=== PATIENT | female | born 1950 | race Caucasian/White ===

== ENCOUNTER 2018-11-09 09:16 | Outpatient (REF) | payer MEDICARE, SELFPAY ==
[2018-11-09 19:08] LABS: HCT 39.8 % (36.0-46.0); HGB 11.9 g/dL (12.0-15.5); Mean Corp. HGB Concentration 29.9 g/dL (32.0-36.0); Mean Corpuscular Hemoglobin 27.1 pg (27.0-33.0); Mean Corpuscular Volume 90.7 fL (80-95); Mean Platelet Volume 10.5 fL (8.0-11.0); Platelet Count 309 x1000/uL (130-400); RBC 4.39 m/cumm (4.00-5.20); RBC Distribution Width 14.5 % (11.7-14.6); White Blood Cell Count 8.23 k/cumm (4.4-10.8)
[2018-11-09 19:26] LABS: ALT 29 U/L (14-59); AST 23 U/L (15-37); Albumin 3.8 g/dL (3.4-5.0); Alkaline Phosphatase 91 U/L (46-116); Anion Gap 8.3 mmol/L (3-11); BUN 18 mg/dL (7-18); Bilirubin, Total 0.3 mg/dL (0.2-1.0); CO2 32.7 mmol/L (21.0-32.0); CREATININE 0.91 mg/dL (0.55-1.02); Calcium 9.3 mg/dL (8.5-10.1); Calculated LDL 70 mg/dL; Chloride 99 mmol/L (98-107); Cholesterol 134 mg/dL (50-200); Glucose 151 mg/dL (70-100); HDL Cholesterol 35 mg/dL (40-60); Potassium 4.5 mmol/L (3.5-5.1); Sodium 140 mmol/L (136-145); Triglyceride 147 mg/dL (30-150)
[2018-11-09 20:14] LABS: COMMENT (LAB VIEW ONLY) < 13.00 mg/dL; PROTEIN < 6.0 mg/dL
== END 2018-11-09 09:36 ==
LOC: NCHCN 09:16
PROVIDERS: PCP Nurse Practitioner Family; Visit Provider Nurse Practitioner Family
DX: D64.9 Anemia, unspecified (principal); E11.9 Type 2 diabetes mellitus without complications; I10 Essential (primary) hypertension; E88.9 Metabolic disorder, unspecified
CPT/HCPCS: 80053; 80061; 85027; 82043; 82565; 82570; 84156

== ENCOUNTER 2019-02-07 00:07 | Outpatient (CLI) | payer MEDICARE, SELFPAY ==
--- NOTE | 2019-02-07 14:20 | DI.MAMMO_ITS ---
EXAM: MG MAMMO SCREENING 60 MIN DUR CLINICAL HISTORY: SCREENING, Z12.39. TECHNIQUE: Full field digital CC and MLO mammographic images were obtained with 3D tomosynthesis and utilizing computer aided detection (CAD). COMPARISON: [id number] available for comparison. FINDINGS: Masses/Architectural Distortion: None seen. Microcalcifications: No suspicious pleomorphic-type are seen. Skin Thickening/Nipple Retraction: None. IMPRESSION: 1. No significant interval change with no specific features of malignancy noted. 2. Unless there is more urgent need, screening mammography is recommended, as per [employer] guidelines. BI-RADS Cat 1 - Negative Breast Density - Category B - Scattered areas of fibroglandular density A negative radiographic report should not delay biopsy if a dominant or clinically suspicious mass is present. Up to ten percent of cancers are not identified on mammography. A negative report may reinforce clinical impression. Adenosis and dense breasts may obscure an underlying neoplasm. False positive reports average 6 to 10%. Patient will receive a letter notifying them of these results.
== END 2019-02-07 00:27 ==
PROVIDERS: PCP Nurse Practitioner Family; Visit Provider Nurse Practitioner Family
DX: Z12.31 Encounter for screening mammogram for malignant neoplasm of breast (principal)
CPT/HCPCS: 77063; 77067

== ENCOUNTER 2019-05-09 13:04 | Outpatient (REF) | payer MEDICARE, SELFPAY ==
[2019-05-09 14:05] LABS: Anion Gap 9.1 mmol/L (3-11); BUN 17 mg/dL (7-18); CO2 30.9 mmol/L (21.0-32.0); CREATININE 0.88 mg/dL (0.55-1.02); Calcium 9.1 mg/dL (8.5-10.1); Chloride 102 mmol/L (98-107); Glucose 162 mg/dL (74-106); Potassium 4.2 mmol/L (3.5-5.1); Sodium 142 mmol/L (136-145)
[2019-05-09 14:29] LABS: HCT 40.2 % (36.0-46.0); Mean Corp. HGB Concentration 29.9 g/dL (32.0-36.0); Mean Corpuscular Volume 90.3 fL (80-95); Mean Platelet Volume 10.2 fL (8.0-11.0); Platelet Count 337 x1000/uL (130-400); RBC 4.45 m/cumm (4.00-5.20); RBC Distribution Width 14.9 % (11.7-14.6); White Blood Cell Count 8.19 k/cumm (4.4-10.8)
== END 2019-05-09 13:24 ==
LOC: NCHCN 13:04
PROVIDERS: PCP Nurse Practitioner Family; Visit Provider Nurse Practitioner Family
DX: E11.9 Type 2 diabetes mellitus without complications (principal); D64.9 Anemia, unspecified
CPT/HCPCS: 80048; 85027

== ENCOUNTER 2019-12-16 13:01 | Outpatient (REF) | payer MEDICARE, SELFPAY ==
[2019-12-16 19:54] LABS: AST 26 U/L (15-37); Albumin 3.9 g/dL (3.4-5.0); Alkaline Phosphatase 84 U/L (46-116); BUN 14 mg/dL (7-18); Bilirubin, Total 0.3 mg/dL (0.2-1.0); CO2 34.6 mmol/L (21.0-32.0); CREATININE 0.94 mg/dL (0.55-1.02); Calcium 9.4 mg/dL (8.5-10.1); Ferritin 72 ng/mL (8-252); Glucose 107 mg/dL (74-106); Iron 42 ug/dL (50-170); Magnesium 1.8 mg/dL (1.8-2.4); Total Iron Binding Capacity 331 ug/dL (250-450); Transferrin Sat 13 % (15-50)
[2019-12-16 20:13] LABS: ALT 35 U/L (14-59); Anion Gap 7.4 mmol/L (3-11); Chloride 101 mmol/L (98-107); Sodium 143 mmol/L (136-145)
[2019-12-16 20:53] LABS: NT-proBNP 162 pg/mL (<300)
== END 2019-12-16 13:21 ==
LOC: NCHCN 13:01
PROVIDERS: PCP Nurse Practitioner Family; Visit Provider Nurse Practitioner Family
DX: D64.9 Anemia, unspecified (principal); E11.9 Type 2 diabetes mellitus without complications; I50.9 Heart failure, unspecified; R07.89 Other chest pain
CPT/HCPCS: 80053; 85027; 82728; 83540; 83550; 83735; 83880

== ENCOUNTER 2019-12-19 01:17 | Outpatient (CLI) | payer MEDICARE, SELFPAY ==
--- NOTE | 2019-12-19 | DI.RAD_ITS ---
EXAM: XR CHEST 2V PA LATERAL CLINICAL HISTORY: CHF,I50.9,INTERMITTENT CHEST PAIN,R07.89 TECHNIQUE: 2D digital imaging was performed. COMPARISON: CR PORTABLE CHEST ONE VIEW from 07/04/2015 CR CHEST 2 VIEWS PA,LAT from 10/13/2016 CR CHEST 2 VIEWS PA,LAT from 10/16/2016 FINDINGS: Exam is somewhat limited by the patient's body habitus. The heart is again noted to be enlarged. Th e aorta shows calcification but no dilatation. There are mild fibrotic changes. No focal infiltrate or effusion is seen. There is mild vascular prominence which appears chronic. IMPRESSION: No acute pulmonary findings. DATA REPOSITORY: RADIATION DOSE DELIVERED:
== END 2019-12-19 01:37 ==
PROVIDERS: PCP Nurse Practitioner Family; Visit Provider Nurse Practitioner Family
DX: R07.89 Other chest pain (principal); I50.9 Heart failure, unspecified; I51.7 Cardiomegaly; I70.0 Atherosclerosis of aorta
CPT/HCPCS: 71046

== ENCOUNTER 2019-12-26 08:12 | Outpatient (REF) | payer MEDICARE, SELFPAY ==
[2019-12-26 18:36] LABS: HCT 38.6 % (36.0-46.0); HGB 11.8 g/dL (11.2-15.7); MCH 27.4 pg (27.0-33.0); MCHC 30.6 % (32.0-36.0); MCV 89.6 fL (80-95); MPV 10.3 fL (8.0-11.0); Platelet Count 274 10^3/uL (130-400); RBC 4.31 10^6/uL (3.93-5.22); RDW-SD 45.5 fL
== END 2019-12-26 08:32 ==
LOC: NCHCN 08:12
PROVIDERS: PCP Nurse Practitioner Family; Visit Provider Nurse Practitioner Family
DX: I50.9 Heart failure, unspecified (principal); R07.89 Other chest pain; I10 Essential (primary) hypertension
CPT/HCPCS: 85027

== ENCOUNTER → 2019-12-30 12:45 | Outpatient (BNVA) | payer MEDICARE, SELFPAY | PROVIDERS: PCP Nurse Practitioner Family; Referring Provider Nurse Practitioner Family; Visit Provider Internal Medicine Cardiovascular Disease | DX: I25.10 Atherosclerotic heart disease of native coronary artery without angina pectoris (principal); I50.9 Heart failure, unspecified; E66.2 Morbid (severe) obesity with alveolar hypoventilation; E11.9 Type 2 diabetes mellitus without complications; J44.9 Chronic obstructive pulmonary disease, unspecified; Z99.81 Dependence on supplemental oxygen; I11.0 Hypertensive heart disease with heart failure | CPT/HCPCS: 99203 ==

== ENCOUNTER 2020-04-12 12:08 | Outpatient (REF) | payer MEDICARE, SELFPAY ==
[2020-04-12 15:29] LABS: HCT 38.6 % (36.0-46.0); HGB 11.7 g/dL (11.2-15.7); MCH 27.1 pg (27.0-33.0); MCHC 30.3 % (32.0-36.0); MCV 89.4 fL (80-95); MPV 10.3 fL (8.0-11.0); Platelet Count 288 10^3/uL (130-400); RBC 4.32 10^6/uL (3.93-5.22); RDW 13.6 % (11.7-14.6); RDW-SD 44.4 fL
[2020-04-12 15:38] LABS: Anion Gap 7.9 mmol/L (3-11); BUN 18 mg/dL (7-18); CO2 34.1 mmol/L (21.0-32.0); Calcium 9.8 mg/dL (8.5-10.1); Chloride 99 mmol/L (98-107); Estimated GFR 55.14 (mL/min/1.73m2); Glucose 202 mg/dL (74-106); NT-proBNP 151 pg/mL (<300); Potassium 4.5 mmol/L (3.5-5.1); Sodium 141 mmol/L (136-145)
== END 2020-04-12 12:09 | disposition home or self-care (01) ==
LOC: NCHCN 12:08
PROVIDERS: PCP Nurse Practitioner Family; Visit Provider Nurse Practitioner Family
DX: D64.9 Anemia, unspecified (principal); E11.9 Type 2 diabetes mellitus without complications; I50.9 Heart failure, unspecified
CPT/HCPCS: 80048; 85027; 83880

== ENCOUNTER 2020-11-09 08:11 | Outpatient (REF) | payer MEDICARE, SELFPAY ==
[2020-11-09 15:12] LABS: ALT 33 U/L (14-59); AST 28 U/L (15-37); Albumin 4.4 g/dL (3.4-5.0); Alkaline Phosphatase 86 U/L (46-116); Anion Gap 11.7 mmol/L (3-11); BUN 16 mg/dL (7-18); Bilirubin, Total 0.5 mg/dL (0.2-1.0); CO2 30.3 mmol/L (21.0-32.0); Calcium 10.2 mg/dL (8.5-10.1); Calculated LDL 89 mg/dL (<100); Chloride 97 mmol/L (98-107); Cholesterol 165 mg/dL (<200); Estimated GFR 55.14 (mL/min/1.73m2); Glucose 183 mg/dL (74-106); HDL Cholesterol 44 mg/dL (40-60); Potassium 4.3 mmol/L (3.5-5.1); Sodium 139 mmol/L (136-145); Total Protein 7.5 g/dL (6.4-8.2); Triglyceride 161 mg/dL (<150)
[2020-11-09 16:04] LABS: COMMENT (LAB VIEW ONLY) 2.16 mg/dL; Microalb ug/mg Crea 388.9 ug/mg Cr
== END 2020-11-09 08:12 | disposition home or self-care (01) ==
LOC: NCHCN 08:11
PROVIDERS: PCP Nurse Practitioner Family; Referring Provider Physician Assistant; Visit Provider Physician Assistant
DX: E11.9 Type 2 diabetes mellitus without complications (principal)
CPT/HCPCS: 80053; 80061; 82043; 82570

== ENCOUNTER 2020-12-18 01:11 | Outpatient (CLI) | payer MEDICARE, SELFPAY ==
--- NOTE | 2020-12-18 | DI.US_ITS ---
APPROVED REPORT EXAM: Comprehensive 2D, Doppler, and color-flow Echocardiogram Patient Location: Out-Patient Scheduling Representative: Angela Clemente RDCS (AE) Indications: CHF Other Information Study Quality: Fair. Technically limited study due to body habitus. Conclusion Technically difficult study Normal left ventricular wall thickness and chamber size. Estimated ejection fraction is approximatel y 60%. Wall motion appeared normal The right atrium and right ventricle not well visualized The left atrium appeared normal in size The aortic valve was sclerotic without stenosis or regurgitation Mild mitral annular calcification. Mildly thickened mitral leaflets. Trace mitral regurgitation The tricuspid valve appeared normal with trace regurgitation. Right ventricular systolic pressure co uld not be estimated Wall motion Left Ventricle The left ventricle is normal size. The overall left ventricular systolic function appears normal. The re is normal left ventricular wall thickness. There is no ventricular septal defect visualized. LVEF is 60%. Right Ventricle Right ventricle is not well visualized. Right ventricular systolic function could not be assessed. Atria The left atrium size is normal. Right atrium is not well visualized. The interatrial septum is intact with no evidence for an atrial septal defect. Aortic Valve The Aortic valve is sclerotic. Aortic valve is calcified. Aortic valve is trileaflet. No hemodynamica lly significant valvular aortic stenosis. No aortic regurgitation is present. Mitral Valve Mild mitral annular calcification. Mitral valve leaflets are mildly thickened. No evidence of mitral valve stenosis. Trace mitral regurgitation. Tricuspid Valve The tricuspid valve is normal in structure. There is no tricuspid valve stenosis. Trace tricuspid reg urgitation. Unable to assess PA pressure. Pulmonic Valve Pulmonic valve is not well visualized. There is no pulmonic valvular stenosis. There is no pulmonic v alvular regurgitation. Great Vessels The aortic root is normal in size. Ascending aorta is not well visualized. IVC is normal in size and collapses >50% with inspiration. Pericardium There is no pericardial effusion. 2D Dimensions IVSD d PLAX 0.93 cm F: 0.6-1.0 LVPW d PLAX 0.95 cm F: 0.6 - 1.0 LVID d PLAX 4.96 cm F: 3.8 - 5.2 LVDs 3.35 cm F: 2.2 - 3.5 Ao Root d 2.87 cm F: 2.7 - 3.3 LV EF Nicichholminal 59.3 % FS 31.50 % LV Diastology MV E' medial 0.071 (>0.07 m/s) E/A Ratio 0.9 LV E/e MED 12.10 (<14) MV E Vmax 0.86 (0.4-1.3 m/s) MV E' lateral 0.083 (>0.1 m/s) MV A Vmax 0.95 (0.4-1.3 m/s) LV E/e LAT 10.35 (<14) MV E/A Ratio 0.90 MV E/E' medial 12.14 MV E/E' lateral 10.35 Aortic Valve LVOT Area 3.46 cm2 AoV Area Vmax 1.65 cm2 LVOT Vmax 1.14 m/s AoV Area/ BSA (Vmax) 0.71 cm2/m2 LVOT Mean Joey. 0.75 m/s JAYDA Mean Joey. 1.46 cm2 LVOT Peak Grad 5.2 mmHg JAYDA Mean Joey. Index 0.63 cm2/m2 LVOT Mean Grad 2.7 mmHg LVOT VTI 0.285 m LVOT Diam s 2.10 cm AoV Vmax 2.38 m/s Velocity Ratio 0.47 AoV Mean Joey. 1.77 m/s AoV Peak Grad 22.7 mmHg LVOT SV 98.80 mL AoV Mean Grad 13.7 mmHg AoV VTI 0.455 m AoV Area VTI 2.17 cm2 AoV Area/ BSA (VTI) 0.94 cm/m2 Mitral Valve MV DT 327 (160-240 msec) MV PHT 95 msec MV Area PHT 2.32 cm2 MV VTI 0.383 m MV Area VTI 2.58 (4.0-6.0 cm2) Pulmonary Valve PV Vmax 1.41 (0.5-1.5 m/s) RVOT Peak Gr. 4.25 mmHg PV Peak Grad 8.0 mmHg RVOT Mean Gr. 1.80 mmHg PV Mean Grad 3.6 mmHg RVOT VTI 0.186 m PV VTI 0.256 m RVOT Vmax 1.03 m/s
== END 2020-12-18 01:31 ==
PROVIDERS: PCP Physician Assistant; Visit Provider Physician Assistant
DX: I50.9 Heart failure, unspecified (principal); R93.9 Diagnostic imaging inconclusive due to excess body fat of patient
CPT/HCPCS: 93306

== ENCOUNTER 2021-03-04 00:38 | Outpatient (CLI) | payer MEDICARE, SELFPAY ==
--- NOTE | 2021-03-04 08:42 | DI.CTLCSR_ITS ---
Exam(s) CT CHEST LUNG CANCER SCREEN EXAM: CT CHEST LUNG CANCER SCREEN CLINICAL HISTORY: CIGARETTE SMOKER, Z87.891 TECHNIQUE: Imaging Protocol: Axial computed tomography images with coronal and sagittal reformatted images were created and reviewed COMPARISON: CT CHEST FOR PULMONARY EMBOLUS from 10/13/2016 CR XR CHEST 2V PA LATERAL from 12/19/2019 FINDINGS: Artifact related to patient body habitus. Tracheobronchial tree: Patent where visualized. Mediastinum and Angela: No dominant adenopathy or fluid collection. Pulmonary parenchyma: No consolidation or dominant measurable mass. Atelectasis or scarring in the r ight middle lobe and lingula medially. Lung Nodules: Calcified nodule left lower lobe. 3 millimeter nodule right lower lobe. Pleura: No effusion or pneumothorax. Heart: The heart is mildly dilated. Coronary artery calcifications are seen. Mitral valve calcificat ions. Aorta: Thoracic aorta non-dilated.[id number]-tc-[id number] calcification. Upper abdomen: Unremarkable. Bones: Within normal limits for age.. Soft Tissues: Unremarkable. IMPRESSION: 3 millimeter nodule right lower lobe. Calcified nodule left lower lobe. No suspicious nodules. Lung RADS Cat 2 - Benign Appearance / Behavior: Nodules with a very low likelihood of becoming a clin ically active cancer due to size or lack of growth Lung-RADS 1.0 CATEGORIES: Category 0 - Prior chest CT exam(s) being located for comparison. Category 1 - Annual screening in 12 months. No nodules or definitely benign nodules. Category 2 - Annual screening in 12 months. Benign appearance. Nodules with low likelihood of becomin g active cancer. Category 3 - 6-month follow-up. Probably benign. Short-term follow-up suggested. Nodules with low lik elihood of becoming active cancer. Category 4A - 3-month follow-up and CT/PET if >8 mm in size. Suspicious finding. Findings which requi re additional testing. Category 4B - Findings which require additional testing and tissue sampling. Modifier S- Potentially clinically significant findings (non lung cancer) RADIATION DOSE DELIVERED: 93.72mGy.cm Total DLP 2.21mGy CTDIvol DATA REPOSITORY: All CT scans at this facility are submitted to the National Radiology Data Registry (NRDR) Dose Index Registry (DIR) with the [employer] ([employer]). RADIATION OPTIMIZATION: All CT scans at this facility use at least one of these dose optimization te chniques: automated exposure control; mA and/or kV adjustment per patient size (includes targeted exa ms where dose is matched to clinical indication); or iterative reconstruction.
== END 2021-03-04 00:58 ==
PROVIDERS: PCP Physician Assistant; Visit Provider Physician Assistant
DX: Z12.2 Encounter for screening for malignant neoplasm of respiratory organs (principal); Z87.891 Personal history of nicotine dependence; R91.1 Solitary pulmonary nodule
CPT/HCPCS: 71271

== ENCOUNTER 2021-04-11 09:16 | Outpatient (REF) | payer MEDICARE, SELFPAY ==
[2021-04-11 14:57] LABS: HCT 41.7 % (36.0-46.0); HGB 12.4 g/dL (11.2-15.7); MCH 27.5 pg (27.0-33.0); MCHC 29.7 % (32.0-36.0); MCV 92.5 fL (80-95); MPV 10.1 fL (8.0-11.0); Platelet Count 347 10^3/uL (130-400); RBC 4.51 10^6/uL (3.93-5.22); RDW 13.5 % (11.7-14.6); RDW-SD 45.6 fL; WBC 8.56 10^3/uL (4.4-10.8)
[2021-04-11 15:51] LABS: ALT 29 U/L (14-59); AST 21 U/L (15-37); Albumin 3.9 g/dL (3.4-5.0); Alkaline Phosphatase 95 U/L (46-116); Anion Gap 9.6 mmol/L (3-11); BUN 22 mg/dL (7-18); Bilirubin, Total 0.5 mg/dL (0.2-1.0); CO2 31.4 mmol/L (21.0-32.0); CREATININE 1.1 mg/dL (0.55-1.02); Calcium 9.6 mg/dL (8.5-10.1); Calculated LDL 74 mg/dL (<100); Chloride 101 mmol/L (98-107); Cholesterol 146 mg/dL (<200); Estimated GFR 49.25 (mL/min/1.73m2); Ferritin 121 ng/mL (8-252); Glucose 170 mg/dL (74-106); HDL Cholesterol 34 mg/dL (40-60); Potassium 4.5 mmol/L (3.5-5.1); Sodium 142 mmol/L (136-145); Total Protein 7.5 g/dL (6.4-8.2); Triglyceride 193 mg/dL (<150)
[2021-04-11 21:47] LABS: Hemoglobin A1C 8.3 % (<5.7)
== END 2021-04-11 09:17 | disposition home or self-care (01) ==
LOC: NCHCN 09:16
PROVIDERS: PCP Physician Assistant; Visit Provider Physician Assistant
DX: I10 Essential (primary) hypertension (principal); E11.9 Type 2 diabetes mellitus without complications; D64.9 Anemia, unspecified; E78.5 Hyperlipidemia, unspecified; R60.9 Edema, unspecified
CPT/HCPCS: 80053; 80061; 85027; 82728; 83036

== ENCOUNTER 2021-12-03 15:07 | Outpatient (REF) | payer MEDICARE, SELFPAY ==
[2021-12-03 15:40] LABS: Anion Gap 8.4 mmol/L (3-11); BUN 13 mg/dL (7-18); CO2 32.6 mmol/L (21.0-32.0); CREATININE 1.2 mg/dL (0.55-1.02); Chloride 100 mmol/L (98-107); Glucose 111 mg/dL (74-106); Magnesium 1.7 mg/dL (1.8-2.4); Sodium 141 mmol/L (136-145)
== END 2021-12-03 15:08 | disposition home or self-care (01) ==
LOC: NCHCN 15:07
PROVIDERS: PCP Physician Assistant; Visit Provider Family Medicine
DX: I50.9 Heart failure, unspecified (principal)
CPT/HCPCS: 80048; 83735

== ENCOUNTER 2022-03-25 02:00 | Outpatient (CLI) | payer MEDICARE, SELFPAY ==
--- NOTE | 2022-03-25 | DI.MAMMO_ITS ---
Exam(s) MG MAMMO SCREENING 60 MIN DUR EXAM: MG MAMMO SCREENING 60 MIN DUR CLINICAL HISTORY: SCREENING FOR BREAST CANCER Z12.39. TECHNIQUE: Bilateral full field digital CC and MLO mammographic images were obtained with 3D tomosyn thesis and utilizing computer aided detection (CAD). COMPARISON: Prior mammograms were reviewed. FINDINGS: There has been no significant change in the appearance and distribution of the fibroglandular tissue. There are no new spiculated masses nor malignant appearing microcalcification groups. There is no significant architectural distortion nor skin thickening-retraction. IMPRESSION: No radiographic evidence of malignancy. BI-RADS Category 1 - Negative Breast Density - Category B - Scattered areas of fibroglandular density Breast density Category C or D implies that the patient has dense breast tissue. Dense breast tissue can make it harder to find cancer on a mammogram. Dense breast tissue is also associated with an incr eased risk of breast cancer. This information about the result of the mammogram report was provided to the patient to raise their awareness. Use this report when you speak with the patient about their risks for breast cancer, which includes their family history. At that time, you may recommend additional screening tests (Ultrasoun d or MRI) as these tests may add significant information. A negative radiographic report should not delay biopsy if a dominant or clinically suspicious mass is present. Up to ten percent of cancers are not identified on mammography. A negative report may reinforce clinical impression. Adenosis and dense breasts may obscure an underlying neoplasm. False positive reports average 6 to 10%. Patient will receive a letter notifying them of these results.
== END 2022-03-25 02:20 ==
LOC: DI 02:02
PROVIDERS: PCP Physician Assistant; Visit Provider Physician Assistant
DX: Z12.31 Encounter for screening mammogram for malignant neoplasm of breast (principal)
CPT/HCPCS: 77063; 77067

== ENCOUNTER 2022-06-09 14:49 | Outpatient (REF) | payer MEDICARE, SELFPAY ==
[2022-06-09 16:01] LABS: ALT 23 U/L (14-59); AST 13 U/L (15-37); Albumin 3.7 g/dL (3.4-5.0); Alkaline Phosphatase 96 U/L (46-116); Anion Gap 4.2 mmol/L (3-11); BUN 15 mg/dL (7-18); Bilirubin, Total 0.4 mg/dL (0.2-1.0); CO2 34.8 mmol/L (21.0-32.0); CREATININE 0.9 mg/dL (0.55-1.02); Calculated LDL 91 mg/dL (<100); Chloride 102 mmol/L (98-107); Cholesterol 148 mg/dL (<200); Estimated GFR 68.77 (mL/min/1.73m2); Glucose 132 mg/dL (74-106); HDL Cholesterol 39 mg/dL (40-60); Magnesium 2.1 mg/dL (1.8-2.4); Potassium 4.7 mmol/L (3.5-5.1); Sodium 141 mmol/L (136-145); Total Protein 6.9 g/dL (6.4-8.2); Triglyceride 90 mg/dL (<150)
[2022-06-09 16:05] LABS: Hemoglobin A1C 7.9 % (<5.7)
[2022-06-09 16:20] LABS: COMMENT (LAB VIEW ONLY) < 13.00 mg/dL
== END 2022-06-09 14:50 | disposition home or self-care (01) ==
LOC: NCHCN 14:49
PROVIDERS: PCP Physician Assistant; Visit Provider Physician Assistant
DX: E11.9 Type 2 diabetes mellitus without complications (principal)
CPT/HCPCS: 80053; 80061; 82043; 82570; 83036; 83735

== ENCOUNTER 2022-07-08 01:18 | Outpatient (CLI) | payer MEDICARE, SELFPAY ==
--- NOTE | 2022-07-08 | DI.CTLCSR_ITS ---
Exam(s) CT CHEST LUNG CANCER SCREEN EXAM: CT CHEST LUNG CANCER SCREEN CLINICAL HISTORY: SCREENING FOR LUNG CA, FORMER SMOKER, Z87.891. TECHNIQUE: Imaging Protocol: Low Dose Technique CONTRAST MATERIAL: None COMPARISON: CT CT CHEST LUNG CANCER SCREEN from 03/04/2021 FINDINGS: CHEST: LUNGS: There are no new ominous pulmonary nodules. Small calcified granulomas are again noted trevino. No new infiltrates. No pleural effusions. No new findings in trachea and mainstem bronchi. MEDIASTINUM: There is no obvious hilar nor mediastinal adenopathy. CARDIAC: Heart size is normal. There is no pericardial effusion.Caliber of the thoracic aorta is wit hin normal limits. OTHER: OSSEOUS: No significant osseous lesions.. IMPRESSION: 1. Stable benign-appearing nodules as described above. 2. No new significant pulmonary nodules nor pleural effusions nor new significant infiltrates. 3. Lung RADS Cat 2 - Benign Appearance / Behavior: Nodules with a very low likelihood of becoming a c linically active cancer due to size or lack of growth Lung-RADS 1.0 CATEGORIES: Category 0 - Prior chest CT exam(s) being located for comparison. Category 1 - Annual screening in 12 months. No nodules or definitely benign nodules. Category 2 - Annual screening in 12 months. Benign appearance. Nodules with low likelihood of becomin g active cancer. Category 3 - 6-month follow-up. Probably benign. Short-term follow-up suggested. Nodules with low lik elihood of becoming active cancer. Category 4A - 3-month follow-up and CT/PET if >8 mm in size. Suspicious finding. Findings which requi re additional testing. Category 4B - Findings which require additional testing and tissue sampling. Category 4X - Category 3 or 4 nodules with additional features or imaging findings that increases the suspicion of malignancy. Modifier S- Potentially clinically significant findings (non lung cancer) RADIATION DOSE DELIVERED: 97.01mGy.cm Total DLP DATA REPOSITORY: All CT scans at this facility are submitted to the National Radiology Data Registry (NRDR) Dose Index Registry (DIR) with the [employer] ([employer]). RADIATION OPTIMIZATION: All CT scans at this facility use at least one of these dose optimization te chniques: automated exposure control; mA and/or kV adjustment per patient size (includes targeted exa ms where dose is matched to clinical indication); or iterative reconstruction.
== END 2022-07-08 01:38 ==
LOC: DI 01:18
PROVIDERS: PCP Physician Assistant; Visit Provider Physician Assistant
DX: Z87.891 Personal history of nicotine dependence (principal)
CPT/HCPCS: 71271

== ENCOUNTER 2023-03-23 15:50 | Outpatient (REF) | payer MEDICARE, SELFPAY ==
[2023-03-23 16:14] LABS: Hemoglobin A1C 5.9 % (<5.7)
[2023-03-23 16:51] LABS: BUN 17 mg/dL (7-18); CREATININE 0.9 mg/dL (0.55-1.02); Calcium 9.5 mg/dL (8.5-10.1); Chloride 100 mmol/L (98-107); Estimated GFR 68.35 (mL/min/1.73m2); Glucose 120 mg/dL (74-106); Potassium 3.9 mmol/L (3.5-5.1); Sodium 142 mmol/L (136-145)
== END 2023-03-23 15:51 | disposition home or self-care (01) ==
LOC: NCHCN 15:50
PROVIDERS: PCP Physician Assistant; Visit Provider Physician Assistant
DX: E11.9 Type 2 diabetes mellitus without complications (principal)
CPT/HCPCS: 80048; 83036

== ENCOUNTER 2023-09-24 11:14 | Outpatient (REF) | payer MEDICARE, SELFPAY ==
[2023-09-24 16:14] LABS: ALT 19 U/L (14-59); AST 14 U/L (15-37); Albumin 3.6 g/dL (3.4-5.0); Alkaline Phosphatase 66 U/L (46-116); Anion Gap 9.8 mmol/L (3-11); BUN 23 mg/dL (7-18); Bilirubin, Total 0.47 mg/dL (0.2-1.0); CO2 31.2 mmol/L (21.0-32.0); COMMENT (LAB VIEW ONLY) 41.77 mg/dL; CREATININE 0.9 mg/dL (0.55-1.02); Calcium 9.7 mg/dL (8.5-10.1); Calculated LDL 45 mg/dL (<100); Chloride 100 mmol/L (98-107); Cholesterol 105 mg/dL (<200); Estimated GFR 68.35 (mL/min/1.73m2); Glucose 112 mg/dL (74-106); HDL Cholesterol 35 mg/dL (40-60); Microalb ug/mg Crea 22.7 ug/mg Cr; Potassium 4.1 mmol/L (3.5-5.1); Sodium 141 mmol/L (136-145); Total Protein 6.3 g/dL (6.4-8.2); Triglyceride 127 mg/dL (<150)
== END 2023-09-24 11:15 | disposition home or self-care (01) ==
LOC: NCHCN 11:14
PROVIDERS: PCP Physician Assistant; Visit Provider Physician Assistant
DX: E11.9 Type 2 diabetes mellitus without complications (principal)
CPT/HCPCS: 80053; 80061; 82043; 82570; 83036

== ENCOUNTER 2023-11-18 16:15 | Outpatient (REF) | payer MEDICARE, SELFPAY | END 2023-11-18 16:16 | disposition home or self-care (01) | LOC: LBN 16:15 | PROVIDERS: PCP Physician Assistant; Visit Provider Nurse Practitioner Family | DX: R30.0 Dysuria (principal); B37.9 Candidiasis, unspecified | CPT/HCPCS: 87480; 87510; 87660 ==

== ENCOUNTER 2024-04-04 11:22 | Outpatient (REF) | payer MEDICARE, SELFPAY ==
[2024-04-04 15:21] LABS: HGB 13.6 g/dL (11.2-15.7); MCH 27.4 pg (27.0-33.0); MCHC 30.2 % (32.0-36.0); MCV 91 fL (80-95); Platelet Count 250 10^3/uL (130-400); RBC 4.97 10^6/uL (3.93-5.22); RDW 13.5 % (11.7-14.6); RDW-SD 44.6 fL
[2024-04-04 16:01] LABS: Hemoglobin A1C 6.5 % (<5.7)
[2024-04-04 16:28] LABS: Iron 57 ug/dL (50-170)
[2024-04-04 17:30] LABS: Anion Gap 14.8 mmol/L (3-11); BUN 19 mg/dL (7-18); CO2 29.2 mmol/L (21.0-32.0); Calcium 9.6 mg/dL (8.5-10.1); Chloride 104 mmol/L (98-107); Estimated GFR 59.86 (mL/min/1.73m2); Glucose 164 mg/dL (74-106); Potassium 4.2 mmol/L (3.5-5.1); Sodium 148 mmol/L (136-145)
== END 2024-04-04 11:23 | disposition home or self-care (01) ==
LOC: NCHCN 11:22
PROVIDERS: PCP Physician Assistant; Visit Provider Physician Assistant
DX: E11.9 Type 2 diabetes mellitus without complications (principal)
CPT/HCPCS: 80048; 85027; 83036; 83540

== ENCOUNTER 2024-11-11 10:14 | Outpatient (REF) | payer MEDICARE, SELFPAY ==
[2024-11-11 16:32] LABS: COMMENT (LAB VIEW ONLY) 28.34 mg/dL; Microalb ug/mg Crea 7.1 ug/mg Cr
== END 2024-11-11 10:15 | disposition home or self-care (01) ==
LOC: NCHCN 10:14
PROVIDERS: PCP Physician Assistant; Visit Provider Physician Assistant
DX: I10 Essential (primary) hypertension (principal); E11.9 Type 2 diabetes mellitus without complications
CPT/HCPCS: 82043; 82570